=== PATIENT | male | born 1955 | race Caucasian/White ===

== ENCOUNTER → 2019-04-23 | Outpatient (CLI) | payer MEDICARE ==
--- NOTE | 2019-04-28 15:47 | CRLMR ---
DATE OF SERVICE: 04/23/19 CLINICAL DATA: M25.572,G89.29 LEFT ANKLE MRI: Routine MR protocol. No priors. The Achilles tendon is continuous and appears normal. The posterior tibial, flexor hallucis longus and flexor digitorum longus tendons medially appear intact. The peroneus brevis and peroneus longus tendons laterally appear intact. The anterior ankle tendons appear intact. No marrow signal abnormality. No evidence of a fracture. There are osteoarthritic changes involving multiple joints. The sinus tarsi is unremarkable. The soft tissues are unremarkable. [id number] [facility]
== END ==
LOC: LB.MRI 08:53
PROVIDERS: ATTEND Podiatrist Foot & Ankle Surgery
DX: M25.572 Pain in left ankle and joints of left foot (principal); G89.29 Other chronic pain
CPT/HCPCS: 73721-LT

== ENCOUNTER 2021-10-21 12:01 | Day surgery (SDC) | payer MEDICARE ==
[~2021-10-21 12:01] MED LIST: Metoclopramide 10 MG/2 ML SDV IV PRN; Sodium Chloride 0.9% 1,000 ML IV SCH
== END 2021-10-21 16:10 | disposition home or self-care (01) ==
LOC: LB.SDS 12:01
PROVIDERS: ATTEND Surgery
DX: Z12.11 Encounter for screening for malignant neoplasm of colon (principal); K51.40 Inflammatory polyps of colon without complications; I10 Essential (primary) hypertension; E78.00 Pure hypercholesterolemia, unspecified; Z86.010 Personal history of colon polyps
CPT/HCPCS: J2704; J7030